=== PATIENT | male | born 1990 | race Caucasian/White ===

== ENCOUNTER 2019-02-05 21:24 | Emergency (ER) | payer OTHER ==
[~2019-02-05] VITALS: Ht 182.9 cm; Wt 93.0 kg
[2019-02-05 21:24] VITALS: BP 148/72
[2019-02-05 21:43] LABS: BASO % 1 % (0-3); EOS # 0.1 x10^3/uL (0.0-0.7); EOS % 2 % (0-3); HEMATOCRIT 46.4 % (39.0-53.0); HEMOGLOBIN 15.6 g/dL (13.0-17.5); LYMPH # 2.9 x10^3/uL (1.0-4.8); LYMPH % 45 % (24-48); MEAN CORPUSCULAR HEMOGLOBIN 29 pg (25-35); MEAN CORPUSCULAR HGB CONC 34 g/dL (31-37); MEAN CORPUSCULAR VOLUME 85 fL (79-100); MONO # 0.5 x10^3/uL (0.0-1.1); MONO % 8 % (0-9); NEUT # 2.8 x10^3/uL (1.8-7.7); NEUT % 44 % (31-73); PLATELET COUNT 241 x10^3/uL (140-400); RED BLOOD COUNT 5.44 x10^6/uL (4.30-5.70); RED CELL DISTRIBUTION WIDTH 13.1 % (11.5-14.5); WHITE BLOOD COUNT 6.3 x10^3/uL (4.0-11.0)
--- NOTE | 2019-02-05 21:43 | PHYS DOC ---
Adult General Chief Complaint Chief Complaint: FLANK PAIN HPI HPI 28-year-old male presents to the emergency department with complaints of right flank pain, radiation to his right testicle. States started approximately 30 minutes ago. He denies any dysuria however has had some urgency. No fevers. He was recently seen by his primary care physician and subsequently given antibiotics for possible UTI however her urinalysis did not reveal urinary tract infection. Patient's never had kidney stones before. He has no allergies to medications in the past medical history. Nothing makes his symptoms worse, nothing makes his symptoms better. Review of Systems Review of Systems Constitutional: Denies fever or chills [] Respiratory: Denies cough or shortness of breath [] Cardiovascular: No additional information not addressed in HPI [] GI: Denies abdominal pain, nausea, vomiting, bloody stools or diarrhea [] : Denies dysuria or hematuria [] Musculoskeletal: right flank pain Integument: Denies rash or skin lesions [] Neurologic: Denies headache, focal weakness or sensory changes [] All other systems were reviewed and found to be within normal limits, except as documented in this note. Current Medications Current Medications Current Medications Medications (Trade) Dose Ordered Sig/Fernando Start Time Stop Time Status Last Admin Dose Admin Ketorolac Tromethamine (Toradol 30mg Vial) 30 mg 1X ONCE 02/05/19 21:45 02/05/19 21:47 DC 02/05/19 21:51 30 MG Morphine Sulfate (Morphine Sulfate) 4 mg 1X ONCE 02/05/19 23:15 02/05/19 23:16 DC 02/05/19 23:24 4 MG Ondansetron HCl (Zofran) 4 mg 1X ONCE 02/05/19 23:15 02/05/19 23:16 DC 02/05/19 23:23 4 MG Sodium Chloride 1,000 ml @ 1,000 mls/hr 1X ONCE 02/05/19 22:15 02/05/19 23:14 DC 02/05/19 22:13 1,000 MLS/HR Allergies Allergies Allergies Coded Allergies Type Severity Reaction Last Updated Verified No Known Drug Allergies 02/05/19 No Physical Exam Physical Exam Constitutional: Well developed, well nourished, no acute distress, non-toxic appearance. [] Eyes: PERRLA, EOMI Cardiovascular:Heart rate regular rhythm, no murmur [] Lungs & Thorax: Bilateral breath sounds clear to auscultation [] Abdomen: Bowel sounds normal, soft, no tenderness, no masses, no pulsatile masses, right flank pain [] : normal testicular exam, normal male anatomy appreciated Skin: Warm, dry, no erythema, no rash. [] Back: No tenderness, no CVA tenderness. [] Extremities: No tenderness, no edema. [] Neurologic: Alert and oriented X 3, no focal deficits noted. [] Psychologic: Affect normal, judgement normal, mood normal. [] Current Patient Data Vital Signs Vital Signs Date Time Temp Pulse Resp B/P (MAP) Pulse Ox O2 Delivery O2 Flow Rate FiO2 02/05/19 21:24 97.7 95 18 148/72 (97) 99 Room Air 97.7 Lab Values Laboratory Tests Test 02/05/19 21:30 White Blood Count 6.3 x10^3/uL (4.0-11.0) Red Blood Count 5.44 x10^6/uL (4.30-5.70) Hemoglobin 15.6 g/dL (13.0-17.5) Hematocrit 46.4 % (39.0-53.0) Mean Corpuscular Volume 85 fL (79-100) Mean Corpuscular Hemoglobin 29 pg (25-35) Mean Corpuscular Hemoglobin Concent 34 g/dL (31-37) Red Cell Distribution Width 13.1 % (11.5-14.5) Platelet Count 241 x10^3/uL (140-400) Neutrophils (%) (Auto) 44 % (31-73) Lymphocytes (%) (Auto) 45 % (24-48) Monocytes (%) (Auto) 8 % (0-9) Eosinophils (%) (Auto) 2 % (0-3) Basophils (%) (Auto) 1 % (0-3) Neutrophils # (Auto) 2.8 x10^3/uL (1.8-7.7) Lymphocytes # (Auto) 2.9 x10^3/uL (1.0-4.8) Monocytes # (Auto) 0.5 x10^3/uL (0.0-1.1) Eosinophils # (Auto) 0.1 x10^3/uL (0.0-0.7) Basophils # (Auto) 0.0 x10^3/uL (0.0-0.2) Sodium Level 142 mmol/L (136-145) Potassium Level 3.6 mmol/L (3.5-5.1) Chloride Level 103 mmol/L (98-107) Carbon Dioxide Level 33 mmol/L (21-32) H Anion Gap 6 (6-14) Blood Urea Nitrogen 14 mg/dL (8-26) Creatinine 1.4 mg/dL (0.7-1.3) H Estimated GFR (Cockcroft-Gault) 60.3 BUN/Creatinine Ratio 10 (6-20) Glucose Level 79 mg/dL (70-99) Calcium Level 9.0 mg/dL (8.5-10.1) Total Bilirubin 0.7 mg/dL (0.2-1.0) Aspartate Amino Transferase (AST) 18 U/L (15-37) Alanine Aminotransferase (ALT) 30 U/L (16-63) Alkaline Phosphatase 74 U/L (46-116) Total Protein 7.7 g/dL (6.4-8.2) Albumin 4.0 g/dL (3.4-5.0) Albumin/Globulin Ratio 1.1 (1.0-1.7) Laboratory Tests 02/05/19 21:30 Laboratory Tests 02/05/19 21:30 EKG EKG [] Radiology/Procedures Radiology/Procedures [facility] [address] [place] [address] IMAGING REPORT Signed PATIENT: LIZBETH JAIN NACCOUNT: [id number] : 1990 LOCATION: ER AGE: 28 SEX: M EXAM STATUS: REG ER ORD. PHYSICIAN: NATASHA REDDY MD REASON: right flank pain, stone protocol PROCEDURE: CT ABDOMEN PELVIS WO CONTRAST CT ABDOMEN PELVIS WO CONTRAST History: Right flank pain. Technique: Noncontrast examination of the abdomen and pelvis. Coronal and sagittal reconstructions were performed. Exposure: One or more of the following individualized dose reduction techniques were utilized for this examination: 1. Automated exposure control 2. Adjustment of the mA and/or kV according to patient size 3. Use of iterative reconstruction technique. Comparison: None Findings: Lower chest: No consolidation or pleural effusion. Abdomen and pelvis: The liver, spleen, adrenal glands, pancreas and gallbladder have normal noncontrast appearance. 3 mm right distal ureteral obstructing calculus. Mild right hydronephrosis and hydroureter. Mild right perinephric/perineural fat stranding. Nonobstructing bilateral renal calculi. No left hydronephrosis. Decompressed urinary bladder. Normal appendix. No evidence of bowel obstruction. No pathologic lymphadenopathy. No ascites. Bones: Multilevel Schmorl's nodes. Impression: 1. 3 mm right distal ureteral obstructing calculus contributing to mild right hydronephrosis with right perinephric/perineural fat stranding. 2. Bilateral nonobstructing renal calculi. Electronically signed by: Karthik Fenton DO (02/05/2019 11:04 PM) [facility] DICTATED and SIGNED BY: KARTHIK FENTON DO DATE: 02/05/192303 [] Course & Med Decision Making Course & Med Decision Making Pertinent Labs and Imaging studies reviewed. (See chart for details) []28-year-old male presents to the emergency department with complaints of right flank pain, radiation to his right testicle. States started approximately 30 m inutes ago. He denies any dysuria however has had some urgency. No fevers. He was recently seen by his primary care physician and subsequently given antibiotics for possible UTI however her urinalysis did not reveal urinary tract infection. Patient's never had kidney stones before. He has no allergies to medications in the past medical history. Nothing makes his symptoms worse, nothing makes his symptoms better. Labs reviewed - WBC 6.3, creat 1.4 CT reveals 3mm right distal ureter stone with obstruction Recommend pain control, abx, flomax - should pass on its own based on size Recommend returning to ER for worsening pain Continue home abx already prescribed Discussed findings with patient Pain improved with morphine Dragon Disclaimer Dragon Disclaimer This electronic medical record was generated, in whole or in part, using a voice recognition dictation system. Departure Departure Impression: Primary Impression: Kidney stone on right side Additional Impression: Renal colic on right side Disposition: 01 HOME, SELF-CARE Condition: IMPROVED Patient Instructions: Diet for Kidney Stones, Kidney Stones, [id number] Additional Instructions: Recommend follow up with PCP 3 - 5 days Return to the ER with worsening symptoms, intractable pain, fever, altered mental status Tylenol/Motrin as needed for pain Continue abx as prescribed Flomax 0.4mg po daily [place] rx provided at discharge Scripts Hydrocodone/Apap 5-325 (NORCO 5-325 TABLET) 1 Each Tablet 1-2 TAB PO Q4-6HRS for pain, #14 TAB Prov: NATASHA REDDY MD 02/05/19 Tamsulosin Hcl (FLOMAX) 0.4 Mg Cap.er.24h 1 CAP PO DAILY, #14 CAP 0 Refills Prov: NATASHA REDDY MD 02/05/19 Problem Qualifiers NATASHA REDDY MD Feb 05, 2019 21:43
[2019-02-05] MEDS ORDERED: KETOROLAC 30 MG/ML VIAL. IVP ONE (21:45)
[2019-02-05] MEDS ORDERED: ONDANSETRON PF 4 MG/2 ML VIAL. IV ONE ×2 (21:45→23:15)
[2019-02-05 21:50] LABS: CREATININE 1.4 mg/dL (0.7-1.3); GFR 60.3; POTASSIUM 3.6 mmol/L (3.5-5.1)
[2019-02-05 21:56] LABS: ALBUMIN/GLOBULIN RATIO 1.1 (1.0-1.7); TOTAL BILIRUBIN 0.7 mg/dL (0.2-1.0); TOTAL PROTEIN 7.7 g/dL (6.4-8.2)
[2019-02-05] MEDS ORDERED: IV NORMAL SALINE 1000ML BAG 1,000 ML IV ONE (22:15)
--- NOTE | 2019-02-05 23:07 | RAD ---
CT ABDOMEN PELVIS WO CONTRAST History: Right flank pain. Technique: Noncontrast examination of the abdomen and pelvis. Coronal and sagittal reconstructions were performed. Exposure: One or more of the following individualized dose reduction techniques were utilized for this examination: 1. Automated exposure control 2. Adjustment of the mA and/or kV according to patient size 3. Use of iterative reconstruction technique. Comparison: None Findings: Lower chest: No consolidation or pleural effusion. Abdomen and pelvis: The liver, spleen, adrenal glands, pancreas and gallbladder have normal noncontrast appearance. 3 mm right distal ureteral obstructing calculus. Mild right hydronephrosis and hydroureter. Mild right perinephric/perineural fat stranding. Nonobstructing bilateral renal calculi. No left hydronephrosis. Decompressed urinary bladder. Normal appendix. No evidence of bowel obstruction. No pathologic lymphadenopathy. No ascites. Bones: Multilevel Schmorl's nodes. Impression: 1. 3 mm right distal ureteral obstructing calculus contributing to mild right hydronephrosis with right perinephric/perineural fat stranding. 2. Bilateral nonobstructing renal calculi. Electronically signed by: Karthik House DO (02/05/2019 11:04 PM) [facility]
[2019-02-05] MEDS ORDERED: MORPHINE SULFATE 4 MG/ML VIAL. IV ONE (23:15)
[2019-02-05] MEDS ORDERED: HYDR-3164 PO (23:31)
[2019-02-05] MEDS ORDERED: TAMS0.4C97 PO (23:31)
== END 2019-02-06 00:12 | disposition home or self-care (01) ==
LOC: ER 21:24
DX: N13.2 Hydronephrosis with renal and ureteral calculous obstruction (principal); N50.811 Right testicular pain
CPT/HCPCS: 36415; 74176; 80053; 85025; 96374; 96375; 96376; 99285; J1885; J2270; J2405; J7030; 96361

== ENCOUNTER 2019-02-10 22:35 | Emergency (ER) | payer OTHER ==
[~2019-02-10] VITALS: Ht 182.9 cm; Wt 93.0 kg
[~2019-02-10 22:35] MED LIST: HYDR-3164 PO; TAMS0.4C97 PO
[2019-02-10 23:24] LABS: BILIRUBIN,URINE NEGATIVE (NEG); CLARITY,URINE CLEAR; COLOR,URINE YELLOW; NITRITE,URINE NEGATIVE (NEG); PH,URINE 6.5; PROTEIN,URINE NEGATIVE (NEG-TRACE); UROBILINOGEN,URINE 0.2 mg/dL (0.2 mg/dL)
[2019-02-10 23:34] LABS: BACTERIA,URINE 0 /HPF (0-FEW); SQUAMOUS EPITHELIAL CELL,UR OCC /LPF; WBC,URINE OCC /HPF (0-4)
--- NOTE | 2019-02-11 00:22 | PHYS DOC ---
Past Medical History Past Medical History: No Pertinent History, Kidney Stone (TRACIE CHAVEZ APRN) Past Surgical History: No Surgical History (TRACIE CHAVEZ APRN) Alcohol Use: Rarely Drug Use: None (TRACIE CHAVEZ APRN) Attending Signature I have participated in the care of this patient and I have reviewed and agree with all pertinent clinical information above including history, exam, and recommendations. (NATASHA REDYD MD) Adult General Chief Complaint Chief Complaint: FLANK PAIN HPI HPI Patient is a 28 year old male who presents with was here February 05, 2018 and diagnosed with a right sided kidney stone. Patient states he has an appointment with urology with states that he is out of his hydrocodone for pain. He states he has not passed the stone and is concerned because of worsening pain. Patient is rating his pain a 7 out of 10. (TRACIE CHAVEZ APRN) Review of Systems Review of Systems GI: Denies abdominal pain, + nausea, denies vomiting, bloody stools or diarrhea [] : Right flank pain. Denies dysuria or hematuria [] All other systems were reviewed and found to be within normal limits, except as documented in this note. (TRACIE CHAVEZ APRN) Current Medications Current Medications Current Medications Medications (Trade) Dose Ordered Sig/Fernando Start Time Stop Time Status Last Admin Dose Admin Ketorolac Tromethamine (Toradol 30mg Vial) 30 mg STK-MED ONCE 02/11/19 00:53 02/11/19 00:53 DC Ondansetron HCl (Zofran) 4 mg 1X ONCE 02/11/19 01:15 02/11/19 01:16 DC 02/11/19 00:54 4 MG Sodium Chloride 1,000 ml @ 1,000 mls/hr Q1H 02/11/19 00:30 02/11/19 01:29 DC 02/11/19 00:27 1,000 MLS/HR (NATASHA REDDY MD) Allergies Allergies Allergies Coded Allergies Type Severity Reaction Last Updated Verified No Known Drug Allergies 02/05/19 No (NATASHA REDDY MD) Physical Exam Physical Exam Constitutional: Well developed, well nourished, no acute distress, non-toxic dinora earance. [] HENT: Normocephalic, atraumatic, bilateral external ears normal, oropharynx moist, no oral exudates, nose normal. [] Eyes: PERRLA, EOMI, conjunctiva normal, no discharge. [] Neck: Normal range of motion, no tenderness, supple, no stridor. [] Cardiovascular:Heart rate regular rhythm, no murmur [] Lungs & Thorax: Bilateral breath sounds clear to auscultation [] Abdomen: Bowel sounds normal, soft, no tenderness, no masses, no pulsatile masses. [] Skin: Warm, dry, no erythema, no rash. [] Back: No tenderness, no CVA tenderness. [] Extremities: No tenderness, no cyanosis, no clubbing, ROM intact, no edema. [] Neurologic: Alert and oriented X 3, normal motor function, normal sensory function, no focal deficits noted. [] Psychologic: Affect normal, judgement normal, mood normal. Normal Physical Exam [] (BAF,TRACIE M PIN MAKER) Current Patient Data Vital Signs Vital Signs Date Time Temp Pulse Resp B/P (MAP) Pulse Ox O2 Delivery O2 Flow Rate FiO2 02/11/19 01:24 76 134/62 (86) 100 Room Air 02/10/19 22:45 97.5 20 97.5 (NATASHA REDDY MD) Lab Values Laboratory Tests Test 02/10/19 22:40 02/11/19 00:06 02/11/19 00:25 Urine Collection Type Void Urine Color Yellow Urine Clarity Clear Urine pH 6.5 Urine Specific [place] 1.025 Urine Protein Negative mg/dL (NEG-TRACE) Urine Glucose (UA) Negative mg/dL (NEG) Urine Ketones (Stick) Negative mg/dL (NEG) Urine Blood Moderate (NEG) Urine Nitrite Negative (NEG) Urine Bilirubin Negative (NEG) Urine Urobilinogen Dipstick 0.2 mg/dL (0.2 mg/dL) Urine Leukocyte Esterase Negative (NEG) Urine RBC 11-20 /HPF (0-2) Urine WBC Occ /HPF (0-4) Urine Squamous Epithelial Cells Occ /LPF Urine Bacteria 0 /HPF (0-FEW) Urine Mucus Marked /LPF White Blood Count 7.1 x10^3/uL (4.0-11.0) Red Blood Count 5.11 x10^6/uL (4.30-5.70) Hemoglobin 14.9 g/dL (13.0-17.5) Hematocrit 43.4 % (39.0-53.0) Mean Corpuscular Volume 85 fL (79-100) Mean Corpuscular Hemoglobin 29 pg (25-35) Mean Corpuscular Hemoglobin Concent 34 g/dL (31-37) Red Cell Distribution Width 12.8 % (11.5-14.5) Platelet Count 201 x10^3/uL (140-400) Neutrophils (%) (Auto) 67 % (31-73) Lymphocytes (%) (Auto) 26 % (24-48) Monocytes (%) (Auto) 5 % (0-9) Eosinophils (%) (Auto) 2 % (0-3) Basophils (%) (Auto) 1 % (0-3) Neutrophils # (Auto) 4.8 x10^3/uL (1.8-7.7) Lymphocytes # (Auto) 1.8 x10^3/uL (1.0-4.8) Monocytes # (Auto) 0.4 x10^3/uL (0.0-1.1) Eosinophils # (Auto) 0.1 x10^3/uL (0.0-0.7) Basophils # (Auto) 0.0 x10^3/uL (0.0-0.2) Sodium Level 141 mmol/L (136-145) Potassium Level 4.5 mmol/L (3.5-5.1) Chloride Level 104 mmol/L (98-107) Carbon Dioxide Level 30 mmol/L (21-32) Anion Gap 7 (6-14) Blood Urea Nitrogen 16 mg/dL (8-26) Creatinine 1.4 mg/dL (0.7-1.3) H Estimated GFR (Cockcroft-Gault) 60.3 BUN/Creatinine Ratio 11 (6-20) Glucose Level 96 mg/dL (70-99) Calcium Level 8.9 mg/dL (8.5-10.1) Total Bilirubin 0.5 mg/dL (0.2-1.0) Aspartate Amino Transferase (AST) 21 U/L (15-37) Alanine Aminotransferase (ALT) 35 U/L (16-63) Alkaline Phosphatase 65 U/L (46-116) Total Protein 7.1 g/dL (6.4-8.2) Albumin 4.0 g/dL (3.4-5.0) Albumin/Globulin Ratio 1.3 (1.0-1.7) Laboratory Tests 02/11/19 00:06 Laboratory Tests 02/11/19 00:25 (NATASHA REDDY MD) EKG EKG [] (TRACIE CHAVEZ APRN) Radiology/Procedures Radiology/Procedures [] (TRACIE CHAVEZ APRN) Impressions: [facility] [address] [place] [address] IMAGING REPORT Signed PATIENT: LIZBETH JAIN NACCOUNT: [id number] : 1990 LOCATION: ER AGE: 28 SEX: M EXAM STATUS: REG ER ORD. PHYSICIAN: TRACIE CHAVEZ APRN REASON: flank pain PROCEDURE: CT ABDOMEN PELVIS WO CONTRAST Examination: CT of the abdomen pelvis without contrast HISTORY: History of flank pain COMPARISON: 02/05/2019 TECHNIQUE: Axial CT images of the abdomen pelvis were performed without contrast Exposure: One or more of the following individualized dose reduction techniques were utilized for this examination: 1. Automated exposure control 2. Adjustment of the mA and/or kV according to patient size 3. Use of iterative reconstruction technique FINDINGS: The bibasilar lungs are clear. No evidence of free air identified in the abdomen. The evaluation of the solid organs is limited due to lack of IV contrast. The evaluation of bowel is limited due to lack of oral contrast. The liver, spleen, adrenals grossly appears unremarkable. The gallbladder is mildly distended. The stomach is mildly distended. The visualized pancreas grossly appears unremarkable. Small bowel is nondilated. The appendix is normal. Feces and gas noted in the colon. Bilateral intrarenal collecting system calculi identified with the largest measuring 4 mm in the right. Mild right-sided hydronephrosis identified with a 3 mm calculus identified in the distal right ureter unchanged since prior exam. No evidence of lytic bony destructive lesion. IMPRESSION: 1. 3 mm distal right ureteral calculus causing mild right-sided hydronephrosis and hydroureter unchanged. 2. Bilateral nephrolithiasis. Electronically signed by: Jaden Brar MD (02/11/2019 1:02 AM) [facility] DICTATED and SIGNED BY: JADEN BRAR MD DATE: 02/11/19101 (TRACIE CHAVEZ APRN) Course & Med Decision Making Course & Med Decision Making Patient states he got slightly nauseated but is keeping down food and water. Alert and oriented. Speaks in full clear sentences. Skin pink warm and dry. Amb ulatory with a steady gait. No CVA tenderness. Vital signs within normal limits. Denies fever, vomiting, diarrhea, dysuria. Abdomen is soft and nontender. Patient has right flank pain that wraps around to the right abdomen side. Mucus membranes moist. Because patient states he is still having worsening flank pain and nausea and he has not passed the 3mm obstructing stone, it is appropriate to reevaluate. Patient is still taking Flomax. I have spoken to Dr Reddy about the care plan for this patient. CT ABD PELV IMPRESSION: 1. 3 mm distal right ureteral calculus causing mild right-sided hydronephrosis and hydroureter unchanged. 2. Bilateral nephrolithiasis. Patient states that the Toradol took his pain down from a 9 to a 4/10. He states the [place]'s were dulling the pain enough so he can handle it. (TRACIE CHAVEZ APRN) Dragon Disclaimer Dragon Disclaimer This electronic medical record was generated, in whole or in part, using a voice recognition dictation system. (TRACIE CHAVEZ APRN) Departure Departure Impression: Primary Impression: Kidney stone Disposition: HOME, SELF-CARE Condition: STABLE Referrals: UNKNOWN PCP NAME (PCP) Patient Instructions: Kidney Stones, [id number] Additional Instructions: Keep your scheduled appointment on Sunday with urology. Drink plenty of water. Take medication as prescribed. Scripts Ondansetron (ONDANSETRON ODT) 4 Mg Tab.rapdis 1 TAB PO PRN Q6-8HRS, #30 TAB Prov: TRACIE CHAVEZ APRN 02/11/19 Hydrocodone/Apap 5-325 (NORCO 5-325 TABLET) 1 Each Tablet 1 TAB PO PRN Q6HRS PRN for PAIN, #12 TAB 0 Refills Prov: TRACIE CHAVEZ APRN 02/11/19 TRACIE CHAVEZ APRN Feb 11, 2019 00:22 NATASHA REDDY MD Feb 11, 2019 05:35
[2019-02-11] MEDS: IV NORMAL SALINE 1000ML BAG 1,000 ML IV SCH (00:27)
[2019-02-11 00:37] LABS: BASO % 1 % (0-3); EOS # 0.1 x10^3/uL (0.0-0.7); EOS % 2 % (0-3); HEMATOCRIT 43.4 % (39.0-53.0); HEMOGLOBIN 14.9 g/dL (13.0-17.5); LYMPH # 1.8 x10^3/uL (1.0-4.8); LYMPH % 26 % (24-48); MEAN CORPUSCULAR HEMOGLOBIN 29 pg (25-35); MEAN CORPUSCULAR HGB CONC 34 g/dL (31-37); MEAN CORPUSCULAR VOLUME 85 fL (79-100); MONO # 0.4 x10^3/uL (0.0-1.1); MONO % 5 % (0-9); NEUT # 4.8 x10^3/uL (1.8-7.7); NEUT % 67 % (31-73); PLATELET COUNT 201 x10^3/uL (140-400); RED BLOOD COUNT 5.11 x10^6/uL (4.30-5.70); RED CELL DISTRIBUTION WIDTH 12.8 % (11.5-14.5); WHITE BLOOD COUNT 7.1 x10^3/uL (4.0-11.0)
[2019-02-11 00:47] LABS: CALCIUM 8.9 mg/dL (8.5-10.1); CREATININE 1.4 mg/dL (0.7-1.3); GFR 60.3; POTASSIUM 4.5 mmol/L (3.5-5.1)
[2019-02-11 00:52] LABS: ALBUMIN/GLOBULIN RATIO 1.3 (1.0-1.7); TOTAL BILIRUBIN 0.5 mg/dL (0.2-1.0); TOTAL PROTEIN 7.1 g/dL (6.4-8.2)
[2019-02-11] MEDS ORDERED: KETOROLAC 30 MG/ML VIAL. ONE (00:53)
[2019-02-11] MEDS: ONDANSETRON PF 4 MG/2 ML VIAL. IVP ONE (00:54)
[2019-02-11] MEDS: KETOROLAC 30 MG/ML VIAL. IVP ONE (00:54)
[2019-02-11] MEDS ORDERED: HYDR-3164 PO (00:56)
--- NOTE | 2019-02-11 01:05 | RAD ---
Examination: CT of the abdomen pelvis without contrast HISTORY: History of flank pain COMPARISON: 02/05/2019 TECHNIQUE: Axial CT images of the abdomen pelvis were performed without contrast Exposure: One or more of the following individualized dose reduction techniques were utilized for this examination: 1. Automated exposure control 2. Adjustment of the mA and/or kV according to patient size 3. Use of iterative reconstruction technique FINDINGS: The bibasilar lungs are clear. No evidence of free air identified in the abdomen. The evaluation of the solid organs is limited due to lack of IV contrast. The evaluation of bowel is limited due to lack of oral contrast. The liver, spleen, adrenals grossly appears unremarkable. The gallbladder is mildly distended. The stomach is mildly distended. The visualized pancreas grossly appears unremarkable. Small bowel is nondilated. The appendix is normal. Feces and gas noted in the colon. Bilateral intrarenal collecting system calculi identified with the largest measuring 4 mm in the right. Mild right-sided hydronephrosis identified with a 3 mm calculus identified in the distal right ureter unchanged since prior exam. No evidence of lytic bony destructive lesion. IMPRESSION: 1. 3 mm distal right ureteral calculus causing mild right-sided hydronephrosis and hydroureter unchanged. 2. Bilateral nephrolithiasis. Electronically signed by: Jaden Brar MD (02/11/2019 1:02 AM) [id number]
[2019-02-11] MEDS ORDERED: ONDA4TAB12 PO (01:20)
[2019-02-11 01:24] VITALS: BP 134/62
== END 2019-02-11 01:31 | disposition home or self-care (01) ==
LOC: ER 22:35
DX: N13.2 Hydronephrosis with renal and ureteral calculous obstruction (principal); Z87.442 Personal history of urinary calculi
CPT/HCPCS: 36415; 74176; 80053; 81001; 85025; 96374; 96375; 99285; J1885; J2405; J7030